=== PATIENT | female | born 1985 | race Caucasian/White ===

== ENCOUNTER → 2016-10-07 | Outpatient (CLI) | payer BC ==
[~2016-10-07] MED LIST: CHOL100010 PO
[2016-10-07 10:47] LABS: BASO % 0.6 %; BASO ABS # 0.04 K/uL (0-0.2); COMPLETE YES; EOS % 2.5 %; HEMATOCRIT 38.6 % (37-47); IG% 0.3 %; LYMPH % 29.1 %; LYMPH ABS # 1.96 K/uL (1.2-3.4); MEAN CELL VOLUME 81.6 fL (80-100); MEAN CORPUSCULAR HEMOGLOBIN 27.5 pg (25-34); MEAN CORPUSCULAR HGB CONC 33.7 g/dl (32-36); MEAN PLATELET VOLUME 11.6 fL (7.4-10.4); MONO % 8.3 %; NEUT % 59.2 %; PLATELET COUNT 221 K/uL (130-400); RED BLOOD COUNT 4.73 M/uL (4.2-5.4); WHITE BLOOD COUNT 6.74 K/uL (4.8-10.8)
[2016-10-07 11:20] LABS: ALT/SGPT 25 U/L (12-78); AST/SGOT 18 U/L (15-37); BLOOD UREA NITROGEN 6 mg/dl (7-18); BUN/CREATININE RATIO 7.6 (10-20); CALCIUM 9.2 mg/dl (8.5-10.1); CARBON DIOXIDE 25 mmol/L (21-32); CHLORIDE 105 mmol/L (98-107); CREATININE 0.83 mg/dl (0.60-1.20); GLUCOSE 84 mg/dl (70-99); POTASSIUM 4.1 mmol/L (3.5-5.1); SODIUM 140 mmol/L (136-145)
[2016-10-07 11:30] LABS: ALB/GLOB RATIO 1.2 (0.9-2); ALKALINE PHOSPHATASE 80 U/L (45-117)
[2016-10-08 13:54] LABS: EBV EARLY ANTIGEN AB <0.91 INDEX; EPSTEIN BARR VIR CAPSID IGG 3.26 INDEX
== END | disposition home or self-care (01) ==
LOC: C.LAB1850 10:20
PROVIDERS: ATTEND Internal Medicine
DX: R42 Dizziness and giddiness (principal); J02.9 Acute pharyngitis, unspecified

== ENCOUNTER → 2016-10-22 | Outpatient (CLI) | payer BC ==
[2016-10-22 18:38] LABS: LYME DISEASE AB IGG NEG (NEG); LYME DISEASE AB IGM NEG (NEG)
[2016-10-27 17:25] LABS: ANTI-CENTROMERE AB <1.0 NEG AI (<1.0 NEG); ANTI-SS-A <1.0 NEG AI (<1.0 NEG); ANTI-SS-B <1.0 NEG AI (<1.0 NEG); DNA ds CRITHIDIA NEGATIVE (NEGATIVE); MICROSOMAL AB 1 IU/ML (<9); Sm Antibody <1.0 NEG AI (<1.0 NEG)
== END | disposition home or self-care (01) ==
LOC: C.LAB1850 16:23
PROVIDERS: ATTEND Internal Medicine Pulmonary Disease
DX: K20.0 Eosinophilic esophagitis (principal); L50.1 Idiopathic urticaria; L50.3 Dermatographic urticaria

== ENCOUNTER 2017-08-09 15:54 | Emergency (ER) | payer BC ==
[~2017-08-09] VITALS: Ht 170.2 cm; Wt 58.4 kg
[2017-08-09 15:56] VITALS: TEMP 36.7; Ht 170.2 cm; Wt 58.4 kg
[2017-08-09 17:02] VITALS: O2SAT 99
--- NOTE | 2017-08-09 17:08 | EMERGENCY ROOM VISIT NOTE ---
History First contact with patient: 16:22 Chief Complaint: HEADACHE Stated Complaint: SWOLLEN LEG, HEADACHE History of Present Illness The patient is a 32 year old female who presents to the Emergency Room with complaints of right leg pain and swelling that started today. [facility] and was directed to the ED for further evaluation. She reports that the pain is worse with walking on the leg, better with rest, rates as 4/10. She has not taken any medications for the pain. She states that at [facility] that they measured her right calf and it was slightly larger than the left. She denies any exogenous estrogen use, recent long trips or surgeries , injury to the leg, history of DVT or PE, family history of blood clots. She is a daily smoker. 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 She states she is most concerned about her right leg swelling. She denies any chest pain, shortness of breath, abdominal pain, syncope, fevers or chills, weakness, numbness or tingling of the legs, bowel or bladder dysfunction, dysuria or urinary frequency, rash. She does note that she has been feeling run down and fatigued for the past few months, gets tired with minimal exertion, and occasionally lightheaded. Review of Systems A complete 10 point review of systems was reviewed with the patient with pertinent positives and negatives as per history of present illness. All else were negative. Past Medical/Surgical History Esophagitis, intra-abdominal mass Family History Cancer Gallbladder disease Hypertension Seizures Social History Smoking Status: Current Every Day Smoker Alcohol Use: none Drug Use: none Marital Status: Housing Status: lives with family Occupation Status: unemployed Current/Historical Medications Scheduled PRN Diphenhydramine HCl (Diphenhydramine HCl), 25 MG PO [id number] PRN for UNDECIDED Allergies Reviewed in chart Physical Exam Vital Signs Date Time Temp Pulse Resp B/P (MAP) Pulse Ox O2 Delivery O2 Flow Rate FiO2 08/09/17 18:48 87 17 124/91 99 Room Air 08/09/17 17:03 88 08/09/17 17:02 82 20 112/71 99 Room Air 08/09/17 17:02 99 T-piece 08/09/17 15:56 36.7 97 18 139/84 97 Room Air Physical Exam CONSTITUTIONAL: No acute distress. Well appearing and well nourished. Alert and oriented X 4 with normal affect. HEENT: Normocephalic, atraumatic. Pupils equal, round and reactive to light, EOMI. TMs normal. Pharynx normal. Moist mucous membranes. NECK: Supple, full active range of motion without discomfort. RESPIRATORY: Clear to auscultation bilaterally with no wheezing, crackles, rhonchi or stridor. Equal expansion bilaterally. CARDIOVASCULAR: Regular rate and rhythm with no murmurs, rubs or gallops. Normal peripheral perfusion. No edema. GASTROINTESTINAL: Soft, nontender, nondistended. Bowel sounds present in all quadrants. MUSCULOSKELETAL: Right calf is slightly swollen, tender to palpation posteriorly. Negative Homans sign. No erythema or warmth. Full range of motion of all joints without discomfort. INTEGUMENTARY: No rash or other significant dermatologic conditions noted. NEUROLOGIC: Cranial nerves II-XII grossly intact. No focal neurologic deficits noted. Medical Decision & Procedures ER Provider Diagnostic Interpretation: CHEST 2 VIEWS ROUTINE CLINICAL HISTORY: 32 years-old Female presenting with EVALUATE DVT/EDEMA. TECHNIQUE: PA and lateral views of the chest were obtained. COMPARISON: 07/23/2014. FINDINGS: Cardiomediastinal silhouette normal. Lungs and pleural spaces clear. Osseous structures normal. Upper abdomen normal. IMPRESSION: 1. No acute cardiopulmonary disease. ----- RIGHT LOWER EXTREMITY VENOUS DOPPLER HISTORY: Right leg swelling. EVALUATE FOR DVT COMPARISON STUDY: None. FINDINGS: There is normal compressibility, flow, and augmentation within the right lower extremity deep venous system. IMPRESSION: No DVT within the right lower extremity Laboratory Results 08/09/17 17:00 Red Blood Count 4.61, Mean Corpuscular Volume 72.7, Mean Corpuscular Hemoglobin 22.8, Mean Corpuscular Hemoglobin Concent 31.3, Mean Platelet Volume 10.3, Neutrophils (%) (Auto) 71.0, Lymphocytes (%) (Auto) 21.1, Monocytes (%) (Auto) 5.8, Eosinophils (%) (Auto) 1.3, Basophils (%) (Auto) 0.4, Neutrophils # (Auto) 5.67, Lymphocytes # (Auto) 1.68, Monocytes # (Auto) 0.46, Eosinophils # (Auto) 0.10, Basophils # (Auto) 0.03 08/09/17 17:00 Test 08/09/17 16:40 08/09/17 17:00 Urine Test NEG (NEG) White Blood Count 7.97 K/uL (4.8-10.8) Red Blood Count 4.61 M/uL (4.2-5.4) Hemoglobin 10.5 g/dL (12.0-16.0) Hematocrit 33.5 % (37-47) Mean Corpuscular Volume 72.7 fL (80-100) Mean Corpuscular Hemoglobin 22.8 pg (25-34) Mean Corpuscular Hemoglobin Concent 31.3 g/dl (32-36) Platelet Count 213 K/uL (130-400) Mean Platelet Volume 10.3 fL (7.4-10.4) Neutrophils (%) (Auto) 71.0 % Lymphocytes (%) (Auto) 21.1 % Monocytes (%) (Auto) 5.8 % Eosinophils (%) (Auto) 1.3 % Basophils (%) (Auto) 0.4 % Neutrophils # (Auto) 5.67 K/uL (1.4-6.5) Lymphocytes # (Auto) 1.68 K/uL (1.2-3.4) Monocytes # (Auto) 0.46 K/uL (0.11-0.59) Eosinophils # (Auto) 0.10 K/uL (0-0.5) Basophils # (Auto) 0.03 K/uL (0-0.2) RDW Standard Deviation 43.6 fL (36.4-46.3) RDW Coefficient of Variation 16.6 % (11.5-14.5) Immature Granulocyte % (Auto) 0.4 % Immature Granulocyte # (Auto) 0.03 K/uL (0.00-0.02) Prothrombin Time 11.5 SECONDS (9.0-12.0) Prothromb Time International Ratio 1.1 (0.9-1.1) Activated Partial Thromboplast Time 26.8 SECONDS (21.0-31.0) Partial Thromboplastin Ratio 1.0 Anion Gap 8.0 mmol/L (3-11) Est Creatinine Clear Calc Drug Dose 113.5 ml/min Estimated GFR () 135.2 Estimated GFR (Non- 116.7 BUN/Creatinine Ratio 7.6 (10-20) Calcium Level 8.8 mg/dl (8.5-10.1) Total Bilirubin 0.3 mg/dl (0.2-1) Aspartate Amino Transf (AST/SGOT) 10 U/L (15-37) Alanine Aminotransferase (ALT/SGPT) 14 U/L (12-78) Alkaline Phosphatase 80 U/L (45-117) Total Protein 7.0 gm/dl (6.4-8.2) Albumin 3.7 gm/dl (3.4-5.0) Globulin 3.3 gm/dl (2.5-4.0) Albumin/Globulin Ratio 1.1 (0.9-2) ECG Indication: weakness Rate (beats per minute): 82 Rhythm: normal sinus Findings: no acute ischemic change, no ectopy Change: no significant change (when compared to EKG from 08/09/2017) Medical Decision CC: Patient presenting with complaint of right leg pain, swelling Interpretation of Labs: No leukocytosis, anemia, normal platelets, no significant electrolyte abnormality, normal renal function, normal liver enzymes. Coagulation factors within normal limits. Urine negative. Differential Diagnosis: Includes, but not limited to DVT, cellulitis, muscular skeletal pain, strain/sprain, dehydration, anemia, electrolyte imbalance, among others. Medication Reconciliation: I attest that I have personally reviewed the patient' s current medication list. Vital signs review: I reviewed the patient's vital signs and interpret them as follows: T: Afebrile; BP: Hypertensive; HR: Within normal limits; RR: Within normal limits; Pulse Ox: Within normal limits on room air. Blood pressure screening: The patient was found to have an elevated blood pressure and was referred to their primary doctor for recheck and further treatment. Summary: Patient was evaluated at bedside, history and physical exam performed. Patient is alert and oriented, in no acute distress, resting calm in the stretcher. Patient does complain of some mild tenderness in the right posterior calf when palpated, mildly swollen compared to the left. Neuro exam is normal with no focal deficits. Patient rates her headache currently as 2/10, and she declines any medication to treat this including Tylenol. Orders were placed at bedside for basic labs, urine , EKG, chest x-ray , venous duplex of the right leg to evaluate for DVT. Patient discussed with Dr. Valenzuela, who agrees with my assessment and plan. Labs reviewed as above, patient noted to be anemic, when compared to previous labs this appears to be a new finding. Consistent with microcytic anemia. No other acute abnormalities on labs. Chest x-ray is unremarkable. EKG is NSR with no acute ischemic concerns. Venous duplex is negative for DVT of the right leg. Patient reassessed multiple times throughout ED stay, she reports she is feeling well, and continues to decline any medication for pain. She was updated on all results, and was notified of her anemia today. She was encouraged to follow up with her PCP regarding further workup and treatment of her anemia. She was also given return precautions should her symptoms progress or worsen, she verbalized understanding. The patient was discharged home in stable condition and ambulatory. Impression Primary Impression: Right calf pain Additional Impression: Anemia Departure Information Dispostion Home / Self-Care Condition GOOD Referrals RV. Moreno MD (PCP) Patient Instructions ED Anemia Iron Deficiency, ED Anemia Type Not Specified, ED Muscle Aching, ED Muscle Pain Leg Cramps, My [facility] Additional Instructions You were evaluated in the emergency department today for your right leg pain and swelling. Your ultrasound study of your leg was NEGATIVE for blood clot today. You were found to be slightly anemic on blood work today. You should follow-up with your primary care provider in the next 1-2 weeks to have this further evaluated and treated. You may consider taking an iron supplement ([id number]) 1 tablet daily, which may help to treat her anemia. This medication should be taken on an empty stomach if possible, for best absorption. This medication can cause constipation, he should eat plenty of fiber and drink plenty of fluids. For your leg pain, you may take ibuprofen 600 mg every 6-8 hours as needed and Tylenol 1000 mg every 8 hours as needed. You may apply warm compresses to the legs several times a day for comfort. You should also do gentle stretching of the calf to help relieve tight muscles. Please follow-up with your primary care provider, call for an appointment. Please return to the emergency department for any worsening symptoms, including chest pain, shortness of breath, severe dizziness or passing out, coughing up or vomiting up blood, black or bloody stools, severe abdominal pain, severe worsening leg pain or inability to walk, or any other concerns. Work Instructions Return To Work: 1 day Problem Qualifiers Additional Impression: Anemia Anemia type: unspecified type Qualified Codes: D64.9 - Anemia, unspecified
[2017-08-09 17:13] LABS: BASO % 0.4 %; BASO ABS # 0.03 K/uL (0-0.2); COMPLETE YES; EOS % 1.3 %; HEMATOCRIT 33.5 % (37-47); IG% 0.4 %; LYMPH % 21.1 %; LYMPH ABS # 1.68 K/uL (1.2-3.4); MEAN CELL VOLUME 72.7 fL (80-100); MEAN CORPUSCULAR HEMOGLOBIN 22.8 pg (25-34); MEAN CORPUSCULAR HGB CONC 31.3 g/dl (32-36); MEAN PLATELET VOLUME 10.3 fL (7.4-10.4); MONO % 5.8 %; PLATELET COUNT 213 K/uL (130-400); RED BLOOD COUNT 4.61 M/uL (4.2-5.4); WHITE BLOOD COUNT 7.97 K/uL (4.8-10.8)
[2017-08-09 17:25] LABS: INR 1.1 (0.9-1.1); PROTHROMBIN TIME (PATIENT) 11.5 SECONDS (9.0-12.0)
[2017-08-09 17:30] LABS: BUN/CREATININE RATIO 7.6 (10-20); CALCIUM 8.8 mg/dl (8.5-10.1); CREATININE 0.65 mg/dl (0.60-1.20); POTASSIUM 3.5 mmol/L (3.5-5.1)
[2017-08-09] MEDS ORDERED: DIPH25CA50 PO (17:30)
[2017-08-09 17:34] LABS: ALB/GLOB RATIO 1.1 (0.9-2)
--- NOTE | 2017-08-09 18:01 | DIAGNOSTIC IMAGING REPORT ---
RIGHT LOWER EXTREMITY VENOUS DOPPLER HISTORY: Right leg swelling. EVALUATE FOR DVT COMPARISON STUDY: None. FINDINGS: There is normal compressibility, flow, and augmentation within the right lower extremity deep venous system. IMPRESSION: No DVT within the right lower extremity Electronically signed by: Dane Hartman M.D. 08/09/2017 6:00 PM Dictated Date/Time: 08/09/2017 6:00 PM
--- NOTE | 2017-08-09 18:23 | DIAGNOSTIC IMAGING REPORT ---
CHEST 2 VIEWS ROUTINE CLINICAL HISTORY: 32 years-old Female presenting with EVALUATE DVT/EDEMA. TECHNIQUE: PA and lateral views of the chest were obtained. COMPARISON: 07/23/2014. FINDINGS: Cardiomediastinal silhouette normal. Lungs and pleural spaces clear. Osseous structures normal. Upper abdomen normal. IMPRESSION: 1. No acute cardiopulmonary disease. Electronically signed by: Daniel Prieto M.D. 08/09/2017 6:22 PM Dictated Date/Time: 08/09/2017 6:21 PM
[2017-08-09 18:48] VITALS: BP 124/91; PULSE 87; O2SAT 99
== END 2017-08-09 19:15 | disposition home or self-care (01) ==
LOC: C.EDB 15:55 → C.EDA 19:15
DX: M79.661 Pain in right lower leg (principal); D64.9 Anemia, unspecified; K20.9 Esophagitis, unspecified; G89.29 Other chronic pain; M54.9 Dorsalgia, unspecified; F17.200 Nicotine dependence, unspecified, uncomplicated; Z80.9 Family history of malignant neoplasm, unspecified; Z83.79 Family history of other diseases of the digestive system; Z82.49 Family history of ischemic heart disease and other diseases of the circulatory system; Z82.0 Family history of epilepsy and other diseases of the nervous system

== ENCOUNTER → 2017-11-03 | Outpatient (CLI) | payer BC ==
[~2017-11-03] MED LIST changes: -CHOL100010 PO; +DIPH25CA50 PO
--- NOTE | 2017-11-03 16:35 | DIAGNOSTIC IMAGING REPORT ---
CT SCAN OF THE PARANASAL SINUSES CLINICAL HISTORY: Chronic sinusitis. COMPARISON STUDY: No priors. TECHNIQUE: High-resolution CT scan of the paranasal sinuses is performed. Images are reviewed in the axial, sagittal, and coronal planes. IV contrast was not administered for this examination. The examination is performed using the fusion protocol. A dose lowering technique was utilized adhering to the principles of ALARA. CT DOSE: 627.68 mGy.cm FINDINGS: Maxillary antra: Trace mucosal thickening is seen in the right maxillary antrum. The left maxillary antrum is clear. Anterior ethmoid sinuses: Clear. Posterior ethmoid sinuses: Mild mucosal thickening is seen on the left. Clear on the right. Sphenoid sinuses: Clear. Frontal sinuses: Clear. Ostiomeatal complexes: Patent bilaterally. Frontoethmoidal and sphenoethmoidal recesses: Patent bilaterally. Carotid arteries: The carotid arteries are covered and without septal attachments. Ethmoid roofs: There is asymmetric elevation of the right ethmoid roof as compared to the left. Nasal turbinates: Normal in appearance. Nasal septum: There is leftward deviation of the bony nasal septum. Optic nerves: Covered. Orbits: The bony orbits are intact. Orbital contents are normal in appearance. Calvarium: The imaged calvarium is normal in appearance Mastoid air cells: Well pneumatized. Brain parenchyma: Partially visualized brain parenchyma is within normal limits. IMPRESSION: No significant paranasal sinus disease. See above. Electronically signed by: Faraz Mcgill M.D. 11/03/2017 4:34 PM Dictated Date/Time: 11/03/2017 4:28 PM
[2017-11-03 16:38] LABS: HEMATOCRIT 32.9 % (37-47); HEMOGLOBIN 10.5 g/dL (12.0-16.0); MEAN CELL VOLUME 70.4 fL (80-100); MEAN CORPUSCULAR HEMOGLOBIN 22.5 pg (25-34); MEAN CORPUSCULAR HGB CONC 31.9 g/dl (32-36); MEAN PLATELET VOLUME 9.5 fL (7.4-10.4); PLATELET COUNT 235 K/uL (130-400); RED CELL DISTRIBUTION WIDTH CV 17.8 % (11.5-14.5); RED CELL DISTRIBUTION WIDTH SD 45.5 fL (36.4-46.3); WHITE BLOOD COUNT 7.55 K/uL (4.8-10.8)
[2017-11-03 17:07] LABS: TRANSFERRIN 340 mg/dl (200-360)
== END | disposition home or self-care (01) ==
LOC: C.CTS 16:10
PROVIDERS: ATTEND Physician Assistant
DX: D64.9 Anemia, unspecified (principal); E55.9 Vitamin D deficiency, unspecified; R51 Headache